=== PATIENT | male | born 1955 | race Caucasian/White ===

== ENCOUNTER 2021-02-03 05:27 | Outpatient (RCR) | payer MEDICARE, OTHER ==
[~2021-02-03] VITALS: Ht 182.9 cm; Wt 123.6 kg
[~2021-02-03 05:27] MED LIST: DILT240C87 PO; DILTIAZEM; ESOM20SU; FAMO40TA72 PO; FENO145T26 PO; LISI-729 PO; LORA-726 PO; OMEG100032 PO; OMEP40CA6 PO; ONDA8TAB13 PO; PARO20TA5 PO; SUCR1TAB36 PO; TRICOR
== END 2021-02-03 11:15 | disposition home or self-care (01) ==
LOC: PREOP 05:27
PROVIDERS: ATTEND Surgery
DX: Z01.818 Encounter for other preprocedural examination (principal); K21.9 Gastro-esophageal reflux disease without esophagitis; R19.5 Other fecal abnormalities; Z86.010 Personal history of colon polyps; U07.1 COVID-19
CPT/HCPCS: 87635

== ENCOUNTER 2021-03-05 09:07 | Day surgery (SDC) | payer MEDICARE, OTHER ==
[~2021-03-05] VITALS: Ht 182.9 cm; Wt 123.6 kg
[2021-03-05] VITALS (15 sets, daily range): BP systolic 123–166; BP diastolic 75–100
[2021-03-05] MEDS ORDERED: NS IV 500 ML 500 ML ONE (09:14)
[2021-03-05] MEDS ORDERED: NS IV 500 ML 500 ML IV PRN (09:45)
[2021-03-05] MEDS ORDERED: LIDOCAINE JELLY 2% 6 ML SYRINGE MM PRN (09:45)
[2021-03-05] MEDS ORDERED: HURRICAINE EXT TUBE (BENZOCAINE) XX PRN (09:45)
[2021-03-05] MEDS ORDERED: MIDAZOLAM 5 MG/5 ML (VERSED) VIAL IV ONE (09:45)
[2021-03-05] MEDS ORDERED: fentaNYL INJ 100 MCG/2 ML AMP IVP ONE (09:45)
--- NOTE | 2021-03-05 10:42 | Conscious Sedation/ASA ---
Conscious Sedation Pre-Proced Time 10:00 ASA Score 2 For ASA 3 and 4: Consider anesthesia and medical clearance. Also, for patients with a history of failed moderate sedation consider anesthesia. Airway Lungs Heart ASA score ASA 1: a normal healthy patient ASA 2: a patient with a mild systemic disease (mid diabetes, controlled hypertension, obesity ASA 3: a patient with a severe systemic disease that limits activity (angina, COPD, prior Myocardial infarction) ASA 4: a patient with an incapacitating disease that is a constant threat to life (CHF, renal failure) ASA 5: a moribund patient not expected to survive 24 hrs. (ruptured aneurysm) ASA 6: a declared brain- patient whose organs are being harvested. For emergent operations, add the letter E after the classification Mallampati Classification Grade 2 Sedation Plan Analgesia, Amnesia, Plan communicated to team members, Discussed options with patient/fam, Discussed risks with patient/fam The patient is an appropriate candidate to undergo the planned procedure, sedation, and anesthesia. The patient immediately re-assessed prior to indication. NICKOLAS TOLBERT MD Mar 05, 2021 10:42
--- NOTE | 2021-03-05 10:42 | Progress Note-Pre Operative ---
Pre-Operative Progress Note H&P Reviewed The H&P was reviewed, patient examined and no changes noted. Date Seen by Provider: Mar 05, 2021 Time Seen by Provider: 10:00 Date H&P Reviewed: Mar 05, 2021 Time H&P Reviewed: 10:00 Pre-Operative Diagnosis: GERD, dark tarry stools NICKOLAS TOLBERT MD Mar 05, 2021 10:42
[2021-03-05] MEDS ORDERED: PANT40TA2 PO (10:43)
--- NOTE | 2021-03-05 10:44 | Discharge Inst-Surgical ---
D/C Lap Instructions-KIDO New, Converted, or Re-Newed RX: RX on Chart Follow Up Activity as tolerated High Fiber Diet 25g or more per day Avoid Alcohol, Caffeine, Spicy Weingarten and Acid foods. Drink 64 fluid oz or more of fluids per day. Symptoms to Report: Fever over 101 degree F, Nausea/Vomiting If any problems/questions: Contact your physician or go to Emergency Room NICKOLAS TOLBERT MD Mar 05, 2021 10:44
[2021-03-05] MEDS ORDERED: ONDANSETRON 4 MG/2 ML (SDV) Z0FRAN IVP PRN (10:45)
[2021-03-05] MEDS ORDERED: ONDANSETRON 4 MG (ZOFRAN) ORAL DISSOLVE TAB PO PRN (10:45)
--- NOTE | 2021-03-05 11:55 | Progress Note-Post Operative ---
Post-Operative Progess Note Surgeon (s)/Secretary To Board Of Commissioners (s) Surgeon NICKOLAS TOLBERT MD Secretary To Board Of Commissioners: none Pre-Operative Diagnosis GERD, dark tarry stools Post-Operative Diagnosis reflux esophagitis(stage 2), small HH(2cm), moderate gastritis. mild chronic stage 2 ext and int hemorrhoids, small polyp splenic flexure(3mm) Procedure & Operative Findings Date of Procedure 03/05/21 Procedure Performed/Findings EGD with bx. colonoscopy with bx. Anesthesia Type cs Estimated Blood Loss Estimated blood loss (mL): minimal Specimens/Packing Specimens Removed ge jxn, antrum, splenic flex polyp NICKOLAS TOLBERT MD Mar 05, 2021 11:55
--- NOTE | 2021-03-05 13:43 | OPERATIVE REPORT ---
DATE OF SERVICE: 03/05/2021 ATTENDING PRIMARY CARE PHYSICIAN: Luís Schuler MD PREOPERATIVE DIAGNOSES: Gastroesophageal reflux disease, dark tarry stools. POSTOPERATIVE DIAGNOSES: Reflux esophagitis stage II, small hiatal hernia 2 cm in size, moderate severity gastritis. No formal ulcerations or any active bleeding sources. Chronic stage II external and internal hemorrhoids, small polyp of the splenic flexure approximately 3 mm in size. PROCEDURE: EGD with biopsy, colonoscopy with biopsy. SURGEON: Nickolas Tolbert MD ANESTHESIA: Conscious sedation. ESTIMATED BLOOD LOSS: Minimal. FINDINGS: Same as postoperative diagnoses. DISPOSITION: The patient tolerated the procedure well. INDICATIONS: The patient is a 65-year-old male who has had issues with epigastric burning sensation as well as crampy pain. He also does report some nausea; however, no vomiting episodes. He also reports that he has noticed some dark tarry stools in the past several weeks. He was also found to be COVID positive approximately 6 weeks ago. He does not report any red blood per rectum. He also does not report any family history of colon cancer. His last colonoscopy was approximately 8 years ago and some polyps were identified, biopsied and found to be benign. DESCRIPTION OF PROCEDURE: The patient was brought to the endoscopy suite, laid in left lateral decubitus position. After adequate IV pain and sedative medications and conscious sedation anesthesia, the mouthpiece was applied. The endoscope was placed in the mouth, visualizing the pharynx and hypopharyngeal region. Vocal cords, epiglottis and vallecula identified and appeared to be normal. The endoscope was then gently intubated. Esophageal opening and esophagus insufflated. The endoscope was then advanced to the first, second and third portion of esophagus at the level of the GE junction. A reflux esophagitis stage III identified. No ulcers or strictures identified in this region. A biopsy was taken with forceps with visualization of good hemostasis. The endoscope was then advanced into the stomach and endoscope retroflexed, visualizing a small hiatal hernia approximately 2 cm in size. There was a moderate severity gastritis throughout the stomach. There were no formal ulcerations, polyps, neoplasms or any active bleeding sources. A biopsy was taken of the antrum to rule out H. pylori with visualization of good hemostasis. The endoscope was then advanced to the pylorus and the first and second portion of the duodenum, which appeared normal with no ulcerations or any bleeding. The endoscope was then slowly withdrawn while taking a second look and suctioning of residual air with no additional findings. A digital rectal examination was performed, which revealed mild chronic stage II external and internal hemorrhoids, not actively edematous nor inflamed and no bleeding. Normal sphincter tone was felt and there were no palpable masses. Prostate gland was palpable and appeared normal. The endoscope was then intubated and anus and rectum gently insufflated. The endoscope was then advanced through the valves of [place] of the rectum with no polyps or any neoplasms identified. Through the sigmoid colon, no diverticulosis identified. At the splenic flexure, a small polyp approximately 3 mm in size was identified and this was biopsied and destroyed using forceps and electrocautery. The endoscope was then advanced to the remainder of the transverse and ascending colon to the cecum, which were normal. The endoscope was then slowly withdrawn while taking a second look and suctioning of residual air with no additional findings. The patient tolerated the procedure well. We will recommend the necessary lifestyle and diet accommodation including small and more frequent meals, avoidance of eating at night as well as head elevation while lying supine. He is currently on omeprazole 40 mg daily; however, we will replace this with the Protonix 40 mg daily along with his current regimen of famotidine 20 mg. We also wanted to proceed with a high fiber diet with the incorporation of a fiber supplement, which should equal or exceed 30 grams daily as well as significant amounts of water to promote soft stools on a daily basis. We feel that the most likely etiology of his dark tarry stools is due to nonsteroidal anti-inflammatory as well as other pain medication use as well as a significant amount of caffeinated beverages. He may also have a gallbladder etiology, which may be causing his nausea and if he continues to have symptoms, we will proceed with further workup. Job ID: [id number] DocumentID: [id number] Dictated Date: 03/05/2021 11:41:10 Loss Prevention Research Engineer Date: 03/05/2021 13:42:35 Dictated By: NICKOLAS TOLBERT MD
== END 2021-03-05 12:10 | disposition home or self-care (01) ==
LOC: ENDO 09:07
PROVIDERS: ATTEND Surgery
DX: K21.00 Gastro-esophageal reflux disease with esophagitis, without bleeding (principal); D12.3 Benign neoplasm of transverse colon; K44.9 Diaphragmatic hernia without obstruction or gangrene; K29.70 Gastritis, unspecified, without bleeding; K64.1 Second degree hemorrhoids; K31.89 Other diseases of stomach and duodenum; I10 Essential (primary) hypertension; E78.00 Pure hypercholesterolemia, unspecified